=== PATIENT | female | born 1940 | race Caucasian/White ===

== ENCOUNTER 2016-12-04 14:08 | Emergency (ER) | payer OTHER, BC ==
[~2016-12-04] VITALS: Ht 162.6 cm; Wt 81.5 kg
[~2016-12-04 14:08] MED LIST: ADVAIR 250/501 DISK IH; ALIGN4 MG PO; ALLEGRA ALLERG180 MG PO; ALLEGRA60 MG PO; AMARYL4 MG PO; ASCORBIC ACID500 M3 PO; ASPIRIN81 M2 PO; CINNAMON BARK500 MG PO; COL-RITE100 M1 PO; CYANOCOBALAM1000 MCG PO; FIBER THERAPY0.52 GM PO; FISH OIL 1,0001 EA11 PO; FLAX OIL1000 MG PO; FOLIC ACID1 MG PO; GLIPIZIDE XL10 MG PO; IRON325 M1 PO; JANUVIA100 MG PO; LIPITOR10 MG PO; LISINOPRIL2.5 MG PO; LORTAB 10 MG-3473 ML PO; METFORMIN HCL1000 MG PO; METRONIDAZOLE500 MG PO; NADOLOL20 MG PO; NAPROSYN500 MG PO; OMEPRAZOLE40 M1 PO; PRILOSEC OTC20 MG PO; PROAIR HFA8.5 GM IH; TYLENOL ARTHRI650 MG PO; VALTREX1000 MG PO; VITAMIN D400 UNIT PO
[2016-12-04 14:56] LABS: POINT-OF-CARE METER ID UU13113778
[2016-12-04 15:09] LABS: HEMATOCRIT 34.6 % (36.0-46.0); MCH 27.3 PG (29.0-34.0); MCHC 33.2 G/DL (30.0-36.0); MCV 82.2 FL (83-99); PLATELET COUNT 70 K/uL (156-360); RBC DIS.WIDTH-CV 13.3 % (11.8-14.6); RBC DIS.WIDTH-SD 39.6 % (39-53); RED BLOOD COUNT 4.21 M/uL (3.80-5.20); WHITE BLOOD COUNT 3.3 K/uL (4.1-10.2)
[2016-12-04 15:23] LABS: CHLORIDE 102 mEq/L (99-109); SODIUM 135 mEq/L (136-147)
[2016-12-04 15:25] LABS: GLUCOSE 354 mg/dL (70-99)
[2016-12-04 15:26] LABS: ANION GAP 8 MEQ/L (2-14)
[2016-12-04 15:28] LABS: GFR ESTIMATE (CALCULATED) > 59 mL/min/
[2016-12-04 15:29] LABS: UREA NITROGEN (BUN) 7 mg/dL (9-23)
[2016-12-04 16:54] LABS: ADD MIUA? NO; BILIRUBIN NEGATIVE; BLOOD NEGATIVE; COLOR STRAW ((YELLOW)); GLUCOSE (STRIP) >=500; KETONES NEGATIVE; LEUKOCYTES NEGATIVE; NITRITE NEGATIVE; PROTEIN (STRIP) NEGATIVE; SPECIFIC GRAVITY 1.013 (1.000-1.030); UCUL ADDED? NO; UROBILINOGEN 0.2 MG/DL (0.2-1.0)
[2016-12-04 18:32] LABS: POINT-OF-CARE METER ID UU13113778
[2016-12-04 19:35] VITALS: BP 110/55
== END 2016-12-04 19:36 | disposition home or self-care (01) ==
LOC: EME 14:08
PROVIDERS: Physician Assistant
DX: E11.65 Type 2 diabetes mellitus with hyperglycemia (principal); J45.909 Unspecified asthma, uncomplicated; I10 Essential (primary) hypertension
CPT/HCPCS: 80048; 81003; 82948; 85027; 99281; 99284; J7040

== ENCOUNTER 2017-02-21 09:22 | Inpatient (IN) | payer OTHER, BC ==
[~2017-02-21] VITALS: Ht 165.1 cm; Wt 82.5 kg
[2017-02-21 10:05] LABS: HEMATOCRIT 32.2 % (36.0-46.0); MCH 27.1 PG (29.0-34.0); MCHC 32.6 G/DL (30.0-36.0); MCV 83.2 FL (83-99); MEAN PLAT.VOLUME 9.5 uM^3 (9.5-12.4); PLATELET COUNT 71 K/uL (156-360); RBC DIS.WIDTH-CV 15.1 % (11.8-14.6); RBC DIS.WIDTH-SD 45.3 % (39-53); RED BLOOD COUNT 3.87 M/uL (3.80-5.20); WHITE BLOOD COUNT 2.8 K/uL (4.1-10.2)
[2017-02-21 10:24] LABS: CHLORIDE 105 mEq/L (99-109); SODIUM 139 mEq/L (136-147)
[2017-02-21 10:26] LABS: GLUCOSE 100 mg/dL (70-99)
[2017-02-21 10:27] LABS: ANION GAP 7 MEQ/L (2-14)
[2017-02-21 10:30] LABS: GFR ESTIMATE (CALCULATED) > 59 mL/min/
[2017-02-21 10:31] LABS: UREA NITROGEN (BUN) 6 mg/dL (9-23)
[2017-02-21] MEDS ORDERED: ALLEGRA ALLERG180 MG PO (13:38)
[2017-02-21] MEDS ORDERED: OMEPRAZOLE20 MG PO (13:39)
[2017-02-21] MEDS ORDERED: METFORMIN HCL500 M1 PO (13:40)
[2017-02-21] MEDS ORDERED: CYANOCOBALAM1000 MCG PO (13:40)
[2017-02-21] MEDS ORDERED: FLAX OIL1000 MG PO (13:40)
[2017-02-21] MEDS ORDERED: LOVASTATIN20 MG PO (13:41)
[2017-02-21] MEDS ORDERED: VITAMIN D31000 UNI2 PO (13:41)
[2017-02-21] MEDS ORDERED: ATENOLOL25 MG PO (13:41)
[2017-02-21] MEDS ORDERED: LOVASTATIN10 MG PO (13:52)
[2017-02-21] MEDS ORDERED: ALLEGRA ALLERGY60 MG PO (13:53)
[2017-02-21 14:36] VITALS: BP 137/63
[2017-02-21 14:47] LABS: FERRITIN 52 NG/ML (10-291)
[2017-02-21 15:29] LABS: IRON 45 MCG/DL (35-150)
[2017-02-21 19:55] VITALS: BP 155/69
[2017-02-21 22:00] LABS: MCV 83.8 FL (83-99)
[2017-02-22] VITALS: BP 131/63
[2017-02-22 03:56] VITALS: BP 115/57
[2017-02-22 05:49] LABS: EOSINOPHIL (%) 4.5 % (0-5); EOSINOPHIL COUNT 0.1 K/uL (0-0.3); HEMATOCRIT 28.5 % (36.0-46.0); IMMATURE GRANULOCYTE (%) 0.4 % (0.0-0.7); INSTRUMENT ABS NEUTROPHIL CT 1.7 K/uL; LYMPHOCYTE COUNT 0.5 K/uL (1.0-2.8); MCH 28.2 PG (29.0-34.0); MCHC 33.7 G/DL (30.0-36.0); MCV 83.8 FL (83-99); MEAN PLAT.VOLUME 10.4 uM^3 (9.5-12.4); MONOCYTE (%) 9.5 % (3-12); MONOCYTE COUNT 0.3 K/uL (0-0.8); NEUTROPHIL (%) 64.3 % (45-76); NEUTROPHIL COUNT 1.7 K/uL (1.8-6.4); PLATELET COUNT 64 K/uL (156-360); RBC DIS.WIDTH-CV 15.3 % (11.8-14.6); RBC DIS.WIDTH-SD 46.5 % (39-53); WHITE BLOOD COUNT 2.6 K/uL (4.1-10.2)
[2017-02-22 06:02] LABS: INTER. NORMALIZED RATIO 1.2; PROTHROMBIN TIME 11.9 (9.2-11.2); PTT 27.1 (25-32)
[2017-02-22 06:09] LABS: ALKALINE PHOSPHATASE 71 IU/L (3-129); ANION GAP 6 MEQ/L (2-14); CHLORIDE 108 MEQ/L (99-109); GFR ESTIMATE (CALCULATED) > 59 mL/min/; GLUCOSE 101 mg/dL (70-99); POTASSIUM 3.3 MEQ/L (3.7-5.4); SAMPLE HEMOLYSIS CHECK 0; SAMPLE ICTERIC CHECK 0; SAMPLE LIPEMIA CHECK 0; SODIUM 140 MEQ/L (136-147); TOTAL BILIRUBIN 1.1 MG/DL (0.0-1.0); UREA NITROGEN (BUN) 4 mg/dL (9-23)
[2017-02-22 07:18] VITALS: BP 130/58
[2017-02-22 11:07] LABS: POINT-OF-CARE METER ID UU13113717
[2017-02-22 11:11] VITALS: BP 115/53
[2017-02-22 12:37] LABS: HEMATOCRIT 29.6 % (36.0-46.0); MCV 84.1 FL (83-99)
[2017-02-22 14:59] VITALS: BP 107/53
[2017-02-22 17:25] LABS: POINT-OF-CARE METER ID UU13113819
[2017-02-22 18:00] LABS: HEMATOCRIT 30.7 % (36.0-46.0); MCV 84.3 FL (83-99)
[2017-02-22 20:18] VITALS: BP 122/52
[2017-02-23] VITALS: BP 133/83
[2017-02-23 03:42] VITALS: BP 129/75
[2017-02-23 06:13] LABS: EOSINOPHIL (%) 4.2 % (0-5); EOSINOPHIL COUNT 0.1 K/uL (0-0.3); HEMATOCRIT 28.1 % (36.0-46.0); INSTRUMENT ABS NEUTROPHIL CT 1.8 K/uL; LYMPHOCYTE COUNT 0.5 K/uL (1.0-2.8); MCH 28.5 PG (29.0-34.0); MCHC 33.5 G/DL (30.0-36.0); MCV 85.2 FL (83-99); MEAN PLAT.VOLUME 10.2 uM^3 (9.5-12.4); MONOCYTE (%) 12.2 % (3-12); MONOCYTE COUNT 0.4 K/uL (0-0.8); NEUTROPHIL (%) 64.1 % (45-76); NEUTROPHIL COUNT 1.8 K/uL (1.8-6.4); PLATELET COUNT 65 K/uL (156-360); RBC DIS.WIDTH-CV 15.6 % (11.8-14.6); RBC DIS.WIDTH-SD 48.1 % (39-53); WHITE BLOOD COUNT 2.9 K/uL (4.1-10.2)
[2017-02-23 06:42] LABS: ANION GAP 7 MEQ/L (2-14); CHLORIDE 109 MEQ/L (99-109); GFR ESTIMATE (CALCULATED) > 59 mL/min/; GLUCOSE 101 mg/dL (70-99); POTASSIUM 3.6 MEQ/L (3.7-5.4); SAMPLE HEMOLYSIS CHECK 0; SAMPLE ICTERIC CHECK 0; SAMPLE LIPEMIA CHECK 0; SODIUM 141 MEQ/L (136-147); UREA NITROGEN (BUN) 3 mg/dL (9-23)
[2017-02-23 07:18] VITALS: BP 127/60
[2017-02-23 11:07] VITALS: BP 119/58
[2017-02-23 15:53] VITALS: BP 152/68
[2017-02-23] MEDS ORDERED: ANUCORT-HC25 MG PR (16:38)
== END 2017-02-23 17:05 | disposition home or self-care (01) | DRG 394 ==
LOC: EME 09:22 → 5SOUTH 13:05 → EDOF 13:05 → 5SOUTH 14:28
PROVIDERS: Internal Medicine; Internal Medicine Gastroenterology
PROC: 0DJ08ZZ Inspection of Upper Intestinal Tract, Via Natural or Artificial Opening Endoscopic (ICD-10-PCS; principal; 2017-02-22)
PROC: 0DJD8ZZ Inspection of Lower Intestinal Tract, Via Natural or Artificial Opening Endoscopic (ICD-10-PCS; principal; 2017-02-22)
DX: K64.8 Other hemorrhoids (principal); K64.4 Residual hemorrhoidal skin tags; D61.818 Other pancytopenia; E87.6 Hypokalemia; K74.60 Unspecified cirrhosis of liver; K76.6 Portal hypertension; I85.00 Esophageal varices without bleeding; R18.8 Other ascites; J45.909 Unspecified asthma, uncomplicated; I10 Essential (primary) hypertension; E11.9 Type 2 diabetes mellitus without complications; K21.9 Gastro-esophageal reflux disease without esophagitis; R13.10 Dysphagia, unspecified; R63.4 Abnormal weight loss; E78.5 Hyperlipidemia, unspecified; M06.9 Rheumatoid arthritis, unspecified; K63.5 Polyp of colon; K31.7 Polyp of stomach and duodenum; I25.10 Atherosclerotic heart disease of native coronary artery without angina pectoris; E66.9 Obesity, unspecified; Z79.82 Long term (current) use of aspirin; Z68.30 Body mass index [BMI] 30.0-30.9, adult; Z86.73 Personal history of transient ischemic attack (TIA), and cerebral infarction without residual deficits; Z86.718 Personal history of other venous thrombosis and embolism
CPT/HCPCS: 74177; 80048; 80053; 80069; 82565; 82607; 82728; 82746; 82948; 83540; 84466; 84484; 84520; 85014; 85018; 85025; 85027; 85610; 85730; 86900; 86901; 93970; 94640; 94640 76; 99281; 99285; C9113; G0378; J0696; J1815; J2250; J3010; J7030; J7050

== ENCOUNTER → 2017-04-05 | Outpatient (CLI) | payer OTHER, BC ==
[~2017-04-05] VITALS: Ht 165.1 cm; Wt 79.4 kg
[~2017-04-05] MED LIST changes: +ALLEGRA ALLERGY60 MG PO; +ANUCORT-HC25 MG PR; +ATENOLOL25 MG PO; +ESCITALOPRAM OXA5 MG PO; +IRON18 MG PO; +LOVASTATIN10 MG PO; +LOVASTATIN20 MG PO; +METFORMIN HCL500 M1 PO; +OMEPRAZOLE20 MG PO; +VITAMIN D31000 UNI2 PO
[2017-04-05 08:59] LABS: HEMATOCRIT 35.8 % (36.0-46.0); MCV 83.8 FL (83-99)
[2017-04-05 09:06] LABS: INTER. NORMALIZED RATIO 1.2; PROTHROMBIN TIME 13.1 SEC (10.2-12.9)
[2017-04-05 09:14] LABS: PTT 32.3 SEC (25-37)
[2017-04-05 09:55] LABS: POINT-OF-CARE METER ID UU14107333
== END | disposition home or self-care (01) ==
LOC: AMB 08:33
PROVIDERS: Internal Medicine Gastroenterology
DX: K92.1 Melena (principal); K64.8 Other hemorrhoids; K64.4 Residual hemorrhoidal skin tags; D12.9 Benign neoplasm of anus and anal canal; K74.60 Unspecified cirrhosis of liver; K76.6 Portal hypertension; R16.2 Hepatomegaly with splenomegaly, not elsewhere classified; R18.8 Other ascites; D35.00 Benign neoplasm of unspecified adrenal gland; J44.9 Chronic obstructive pulmonary disease, unspecified; K21.9 Gastro-esophageal reflux disease without esophagitis; Z86.69 Personal history of other diseases of the nervous system and sense organs; I73.9 Peripheral vascular disease, unspecified; D61.818 Other pancytopenia; Z80.3 Family history of malignant neoplasm of breast; Z82.49 Family history of ischemic heart disease and other diseases of the circulatory system; Z83.3 Family history of diabetes mellitus; Z79.84 Long term (current) use of oral hypoglycemic drugs
CPT/HCPCS: 82948; 85014; 85018; 85610; 85730; 93005; J0330; J2250; J3010